=== PATIENT | female | born 1965 | race Caucasian/White ===

== ENCOUNTER 2018-03-27 15:06 | Inpatient (IN) | payer OTHER ==
[~2018-03-27] VITALS: Ht 170.2 cm; Wt 91.1 kg
[2018-04-04] VITALS (8 sets, daily range): BP systolic 94–142; BP diastolic 55–88; PULSE 70–99; TEMP 97.7–98.7
[2018-04-04 10:34] LABS: BASO # 0.1 (0.0-0.2); BASO % 0.6 % (0.0-2.0); EOS # 0.2 (0.0-0.7); EOS % 2.3 % (0-4.0); GRAN # 6.5 (1.4-6.5); GRAN % 67.6 % (42.2-75.2); HEMATOCRIT 44.2 % (37.0-47.0); HEMOGLOBIN 15.7 g/dl (12.5-16.0); LYMPH # 2.3 (1.2-3.4); LYMPH % 23.6 % (20.0-51.0); MEAN CELL VOLUME 82 fl (80.0-100.0); MEAN CORPUSCULAR HEMOGLOBIN 29 pg (27.0-31.0); MEAN CORPUSCULAR HGB CONC 36 g/dl (33.0-37.0); MEAN PLATELET VOLUME 9.7 fl (7.4-10.4); MONO # 0.5 (0.1-0.6); MONO % 5.6 % (1.7-9.3); PLATELET COUNT 271 K/mm3 (130-400); RED BLOOD COUNT 5.38 M/mm3 (4.10-5.30); REDCELL DISTRIBUTION WIDTH-CV 14.8 % (11.5-14.5)
[2018-04-04] MEDS ORDERED: LEXAPRO 10MG10 MG PO (10:36)
[2018-04-04] MEDS ORDERED: SYNTHROID 0.0.025 MG PO (10:36)
[2018-04-04] MEDS ORDERED: CELEXA10 MG PO (10:42)
[2018-04-04 10:45] LABS: ALBUMIN 4.3 gm/dL (3.5-5.0); BILIRUBIN,TOTAL 0.7 mg/dL (0.0-1.0); CREATININE, serum 0.93 mg/dL (0.52-1.25); POTASSIUM 3.4 mmol/L (3.4-5.0)
[2018-04-04 15:12] LABS: CALCIUM 8.5 mg/dL (8.4-10.2); CREATININE, serum 1.05 mg/dL (0.52-1.25); POTASSIUM 3.4 mmol/L (3.4-5.0)
[2018-04-05 04:00] VITALS: BP 115/67; PULSE 81; TEMP 98.2
[2018-04-05 06:34] LABS: HEMATOCRIT 37.7 % (37.0-47.0)
[2018-04-05 06:43] LABS: PHOSPHOROUS 3.7 mg/dL (2.5-4.5)
[2018-04-05 07:59] VITALS: BP 126/71; PULSE 85; TEMP 98.3
[2018-04-05 11:40] VITALS: BP 113/68; PULSE 93; TEMP 98
[2018-04-05 15:10] VITALS: BP 113/66; PULSE 85; TEMP 98.3
[2018-04-05 19:59] VITALS: BP 123/69; PULSE 93; TEMP 99.5
[2018-04-06 03:21] VITALS: BP 100/63; PULSE 74; TEMP 98.3
[2018-04-06 09:12] VITALS: BP 96/54; PULSE 91; TEMP 98.6
[2018-04-06 12:05] VITALS: BP 91/59; PULSE 90; TEMP 97.4
[2018-04-06 15:57] VITALS: BP 122/64; PULSE 104; TEMP 98.1
[2018-04-06 19:36] VITALS: BP 121/63; PULSE 97; TEMP 98.2
[2018-04-06 23:50] VITALS: BP 106/56; PULSE 88; TEMP 98.5
[2018-04-07] VITALS (7 sets, daily range): BP systolic 106–123; BP diastolic 53–78; PULSE 80–107; TEMP 98.2–102.5
[2018-04-07 11:45] LABS: BASO % 0.2 % (0.0-2.0); EOS # 0.4 (0.0-0.7); EOS % 2.6 % (0-4.0); GRAN # 11.8 (1.4-6.5); GRAN % 86.5 % (42.2-75.2); HEMOGLOBIN 12.5 g/dl (12.5-16.0); LYMPH # 0.9 (1.2-3.4); LYMPH % 6.6 % (20.0-51.0); MEAN CELL VOLUME 87 fl (80.0-100.0); MEAN CORPUSCULAR HEMOGLOBIN 30 pg (27.0-31.0); MEAN CORPUSCULAR HGB CONC 34 g/dl (33.0-37.0); MEAN PLATELET VOLUME 10.3 fl (7.4-10.4); MONO # 0.5 (0.1-0.6); MONO % 3.6 % (1.7-9.3); PLATELET COUNT 229 K/mm3 (130-400); RED BLOOD COUNT 4.19 M/mm3 (4.10-5.30); REDCELL DISTRIBUTION WIDTH-CV 15.7 % (11.5-14.5)
[2018-04-07 11:49] LABS: HEMATOCRIT 36.3 % (37.0-47.0)
[2018-04-07 11:59] LABS: CALCIUM 8.1 mg/dL (8.4-10.2); CREATININE, serum 0.78 mg/dL (0.52-1.25); POTASSIUM 3.1 mmol/L (3.4-5.0)
[2018-04-08 01:15] VITALS: TEMP 99.1
[2018-04-08 03:06] VITALS: BP 95/53; PULSE 93; TEMP 99
[2018-04-08 07:35] VITALS: BP 120/63; PULSE 92; TEMP 98.1
[2018-04-08 08:08] LABS: BASO # 0.1 (0.0-0.2); BASO % 0.4 % (0.0-2.0); EOS # 0.3 (0.0-0.7); EOS % 2.6 % (0-4.0); GRAN # 9.2 (1.4-6.5); GRAN % 75.6 % (42.2-75.2); HEMOGLOBIN 11.5 g/dl (12.5-16.0); LYMPH # 1.7 (1.2-3.4); LYMPH % 14.1 % (20.0-51.0); MEAN CELL VOLUME 86 fl (80.0-100.0); MEAN CORPUSCULAR HEMOGLOBIN 29 pg (27.0-31.0); MEAN CORPUSCULAR HGB CONC 34 g/dl (33.0-37.0); MEAN PLATELET VOLUME 10.6 fl (7.4-10.4); MONO # 0.8 (0.1-0.6); MONO % 6.9 % (1.7-9.3); PLATELET COUNT 249 K/mm3 (130-400); RED BLOOD COUNT 3.91 M/mm3 (4.10-5.30); REDCELL DISTRIBUTION WIDTH-CV 15.7 % (11.5-14.5)
[2018-04-08 08:14] LABS: HEMATOCRIT 33.8 % (37.0-47.0)
[2018-04-08 08:21] LABS: CALCIUM 7.8 mg/dL (8.4-10.2); CREATININE, serum 0.89 mg/dL (0.52-1.25); POTASSIUM 3.3 mmol/L (3.4-5.0)
[2018-04-08 12:33] VITALS: BP 122/64; PULSE 92; TEMP 98.2
[2018-04-08 17:35] VITALS: BP 120/65; PULSE 92; TEMP 98.2
[2018-04-08 20:00] VITALS: BP 115/70; PULSE 78; TEMP 98.8
[2018-04-09 04:00] VITALS: BP 116/64; PULSE 93; TEMP 100.1
[2018-04-09 07:13] LABS: BASO # 0.1 (0.0-0.2); BASO % 0.5 % (0.0-2.0); EOS # 0.6 (0.0-0.7); EOS % 5.1 % (0-4.0); GRAN % 74.2 % (42.2-75.2); HEMOGLOBIN 11.1 g/dl (12.5-16.0); LYMPH # 1.3 (1.2-3.4); LYMPH % 12.1 % (20.0-51.0); MEAN CELL VOLUME 85 fl (80.0-100.0); MEAN CORPUSCULAR HEMOGLOBIN 30 pg (27.0-31.0); MEAN CORPUSCULAR HGB CONC 35 g/dl (33.0-37.0); MONO # 0.8 (0.1-0.6); MONO % 7.5 % (1.7-9.3); PLATELET COUNT 279 K/mm3 (130-400); RED BLOOD COUNT 3.76 M/mm3 (4.10-5.30); REDCELL DISTRIBUTION WIDTH-CV 15.3 % (11.5-14.5)
[2018-04-09 07:14] LABS: HEMATOCRIT 31.9 % (37.0-47.0)
[2018-04-09 07:26] LABS: CREATININE, serum 0.88 mg/dL (0.52-1.25); POTASSIUM 3.6 mmol/L (3.4-5.0)
[2018-04-09 07:50] VITALS: BP 110/71; PULSE 94; TEMP 99.6
[2018-04-09 12:48] VITALS: BP 130/63; PULSE 84; TEMP 98.7
== END 2018-04-09 13:40 | disposition home or self-care (01) | DRG 331 ==
LOC: SURG 04-04 10:00 → INPTSU 04-04 10:00 → SURG 04-04 13:00
PROVIDERS: Surgery
PROC: 8E0W4CZ Robotic Assisted Procedure of Trunk Region, Percutaneous Endoscopic Approach (ICD-10-PCS; 2018-04-04)
PROC: 0DTF4ZZ Resection of Right Large Intestine, Percutaneous Endoscopic Approach (ICD-10-PCS; principal; 2018-04-04 13:00)
DX: D12.2 Benign neoplasm of ascending colon (principal); R50.82 Postprocedural fever
CPT/HCPCS: A4314; A9284; J0690; J1100; J1170; J1650; J2250; J2270; J2405; J2550; J2704; J3010; J7120; Q9967

== ENCOUNTER 2018-04-12 14:17 | Inpatient (IN) | payer OTHER ==
[~2018-04-12] VITALS: Ht 160 cm; Wt 93.9 kg
[~2018-04-12 14:17] MED LIST: CELEXA10 MG PO; LEXAPRO 10MG10 MG PO; SYNTHROID 0.0.025 MG PO
[2018-04-12] MEDS ORDERED: ZOFRAN 4MG T4 MG/TAB PO (15:42)
[2018-04-12] MEDS ORDERED: ROXICODONE 55 MG/TAB PO (15:42)
[2018-04-12 17:44] VITALS: BP 129/82; PULSE 76; TEMP 98.7
[2018-04-12 21:58] VITALS: BP 135/62; PULSE 75; TEMP 98.7
[2018-04-13] VITALS (7 sets, daily range): BP systolic 103–131; BP diastolic 61–75; PULSE 74–87; TEMP 98.2–99.7
[2018-04-14 04:30] VITALS: BP 117/69; PULSE 82; TEMP 98.6
[2018-04-14 07:55] VITALS: BP 116/73; PULSE 72; TEMP 98.6
[2018-04-14 08:34] LABS: HEMOGLOBIN 11.8 g/dl (12.5-16.0); MEAN CELL VOLUME 85 fl (80.0-100.0); MEAN CORPUSCULAR HEMOGLOBIN 29 pg (27.0-31.0); MEAN CORPUSCULAR HGB CONC 34 g/dl (33.0-37.0); MEAN PLATELET VOLUME 9.7 fl (7.4-10.4); PLATELET COUNT 367 K/mm3 (130-400); RED BLOOD COUNT 4.07 M/mm3 (4.10-5.30); REDCELL DISTRIBUTION WIDTH-CV 15.3 % (11.5-14.5)
[2018-04-14 08:41] LABS: HEMATOCRIT 34.5 % (37.0-47.0)
[2018-04-14 08:48] LABS: CALCIUM 8.2 mg/dL (8.4-10.2); CREATININE, serum 1.1 mg/dL (0.52-1.25); POTASSIUM 4.3 mmol/L (3.4-5.0)
[2018-04-14 11:43] VITALS: BP 114/61; PULSE 83; TEMP 98.3
== END 2018-04-14 12:30 | disposition home or self-care (01) | DRG 864 ==
LOC: MEDICAL 14:17
PROVIDERS: Surgery
DX: R50.82 Postprocedural fever (principal)
CPT/HCPCS: J1650; J2270; J2405; J2543; Q9967